=== PATIENT | male | born 1970 | race Asian ===

== ENCOUNTER 2016-12-30 19:27 | Emergency (ER) | payer BC ==
[~2016-12-30] VITALS: Ht 172.7 cm; Wt 77.1 kg
[2016-12-30 19:34] VITALS: BP 120/82
--- NOTE | 2016-12-30 19:40 | NUR ---
PT BIB FAMILY C/O NAIL ON LEFT INDEX FINGER, PT IS AAOX4, NO SOB/DISTRESS NOTED, C/O SHARP PAIN TO LEFT FINGERX1 HOUR, 7/10, NON-RADIATING, NO BLEEDING NOTED. AFRIBRILE, DENIES N/V/D, STEADY GAIT, POSITIONED FOR COMFORT, ER MD MADE AWARE OF STATUS.
--- NOTE | 2016-12-30 19:45 | NUR ---
Maria Teresa neil in ED - 12/30/16 at 2007 by [email or web address] TO ER BED 7
[2016-12-30] MEDS ORDERED: LIDOCAINE 1% 500 MG/50 ML VIAL INJ ONE (20:20)
[2016-12-30] MEDS ORDERED: NEOMYCIN/POLYMYXIN/BACITRACIN 0.9 GM/1 PKT TP ONE (20:20)
--- NOTE | 2016-12-30 20:30 | NUR ---
PT IS BEEN EVALUATED BY DR. HUGHES AT BEDSIDE.
--- NOTE | 2016-12-30 20:35 | NUR ---
X-RAY DONE AT BEDSIDE.
--- NOTE | 2016-12-30 20:50 | NUR ---
DR. HUGHES PERFORMED THE PROCEDURE TO REMOVED THE NAIL FORM LEFT INDEX FINGER AT BED SIDE, XYLOCAINE USED. PT TOLERATED WELL, NO BLEEDING NOTED. VSS.
[2016-12-30 20:56] VITALS: BP 122/80
--- NOTE | 2016-12-30 20:56 | NUR ---
Patient discharged with v/s stable. Written and verbal after care instructions given and explained BY DR. HUGHES. Patient alert, oriented and verbalized understanding of instructions. Ambulatory with steady gait. All questions addressed prior to discharge. ID band removed. Patient advised to follow up with PMD. Rx of KEFLEX AND NAPROSYN given. Patient educated on indication of medication including possible reaction and side effects. Opportunity to ask questions provided and answered.
== END 2016-12-30 20:56 | disposition home or self-care (01) ==
LOC: MED 19:27
DX: S60.451A Superficial foreign body of left index finger, initial encounter (principal); W45.8XXA Other foreign body or object entering through skin, initial encounter; Y93.89 Activity, other specified; Y92.009 Unspecified place in unspecified non-institutional (private) residence as the place of occurrence of the external cause; Y99.8 Other external cause status
CPT/HCPCS: 73140; 90471; 90715; 99284; J2001; Q0092